=== PATIENT | female | born 1925 | race Caucasian/White ===

== ENCOUNTER → 2016-08-19 | Outpatient (CLI) | payer MEDICARE ==
[~2016-08-19] MED LIST: BENZONATATE PO; CALAN PO; CALAN SR PO; MAXZIDE; MAXZIDE 75/50 T1 TAB PO; ZYLOPRIM PO
--- NOTE | ~2016-08-19 | CR63 ---
[facility] A Service of [facility] & [facility] RADIOLOGY TEXT RESULTS PATIENT: JALEEL CALLE [facility] LOCATION: [facility] : [birth year] UNIT #: [id number] AGE: [address]: Bautista West MD SEX: F ORDER DR: [id number] [facility] [address] [facility] [place], [place] [address] [id number] O MR#: [id number] Acc #: [id number] NAME: JALEEL CALLE : 1925 SEX: F STUDY DATE/TIME: 08/19/2016 14:46 UNIT: [facility] ROOM: STUDY DESCRIPTION: CR Chest 2 View Attending Physician: Bautista West M.D. Referring Physician: Bautista West M.D. Ordering Physician: Bautista West M.D. Primary Care Physician: Sabi Irizarry M.D. MEDICAL IMAGING REPORT This report is preliminary unless electronic signature is present EXAM Chest 2 views dated 08/19/2016 COMPARISON STUDIES Chest 2 views dated 08/14/2013 HISTORY Shortness of air, CHF and weakness for 1 week. FINDINGS 2 views of the chest were obtained. No significant interval change. Redemonstrated is a borderline size heart with tortuous aorta and stable calcified left lingular lung nodule suggestive of old granulomatous disease. Bones do not demonstrate any significant new abnormality. Endplate osteophytes are at multiple levels of the thoracic spine. Dictated by... Dorie Perkins M.D. THIS IS AN ELECTRONICALLY VERIFIED REPORT Dorie Perkins M.D. at 08/19/2016 5:04 PM CPR/mai TD: 08/19/2016 16:55 JOB #: [id number] MEDICAL IMAGING REPORT COPY
[2016-08-19 15:02] LABS: BUN/CREATININE RATIO 22.5; CALCIUM SERUM 9.2 mg/dL (8.4-10.2); CREATININE SERUM 2.4 mg/dL (0.6-1.4); GLOM FILT RATE Estimated 20.2 mL/min (>60); POTASSIUM 4.5 mmol/L (3.5-5.1)
== END | disposition home or self-care (01) ==
LOC: CRAD 13:47
PROVIDERS: Internal Medicine Cardiovascular Disease
DX: I50.9 Heart failure, unspecified (principal)
CPT/HCPCS: 36415; 71020; 80048; 83880